=== PATIENT | female | born 1955 | race Caucasian/White ===

== ENCOUNTER 2020-03-01 11:23 | Outpatient (CLI) | payer BC, SELFPAY ==
[2020-03-01 12:20] LABS: Add Urine Microscopic? YES; Appearance Urine Cloudy (Clear); Bacteria Urine 4+ /hpf; Bilirubin Urine Negative (Negative); Blood Urine Negative (Negative); Color Urine Yellow (Yellow); Glucose Urine UA Negative (Negative); Ketones Urine Negative (Negative); Leukocyte Esterase Ur Negative LEU/UL (Negative); Mucus Urine Rare /lpf; Nitrate Urine Negative (Negative); Protein Urine Negative (Negative); RBC Urine 0-2 /hpf (0-2); Specific Grav Ur 1.014 (1.001-1.035); Squamous Epithelial Cell Urine Many /hpf (Few); Urobilinogen Urine Negative mg/dL (<2.0)
== END 2020-03-01 11:24 | disposition home or self-care (01) ==
PROVIDERS: PCP Internal Medicine; Visit Provider Nurse Practitioner
DX: R39.9 Unspecified symptoms and signs involving the genitourinary system (principal)
CPT/HCPCS: 81001

== ENCOUNTER 2020-04-16 09:50 | Outpatient (CLI) | payer BC, SELFPAY ==
--- NOTE | ~2020-04-16 | MM_ITS ---
EXAMINATION: MM screening [facility] BI w deepti HISTORY: Screening mammogram, history of left breast cancer TECHNIQUE: Craniocaudal and mediolateral oblique 3-D tomosynthesis images were obtained and synthetic 2-D images were generated. CAD analysis was submitted and interpreted. COMPARISON: 03/26/2019, 03/04/2018, 02/27/2017 BREAST PARENCHYMAL COMPOSITION: The breasts are heterogeneously dense, which may obscure small masses . FINDINGS: Stable surgical changes are noted in the breasts. There is no evidence of suspicious mass, calcification, or architectural distortion to suggest malignancy in either breast. There has been no suspicious interval change. IMPRESSION: 1. No mammographic evidence of malignancy. 2. Recommend routine screening mammography in one year. BI-RADS Category 2: Benign finding(s). Reviewed, dictated and finalized at location A. STERED DIET TECHNICIAN
== END 2020-04-16 09:51 | disposition home or self-care (01) ==
PROVIDERS: PCP Internal Medicine; Visit Provider Obstetrics & Gynecology
DX: Z12.31 Encounter for screening mammogram for malignant neoplasm of breast (principal)
CPT/HCPCS: 77063; 77067

== ENCOUNTER 2020-11-23 14:01 | Outpatient (CLI) | payer BC, MEDICARE, SELFPAY ==
--- NOTE | ~2020-11-23 | DEXA_ITS ---
Bone Density Report Name: Jackelin Giron Age: 65 Sex: Female Ethnicity: White Date of : 1955 Indication: postmenopausal; parental hip fracture; height loss; cancer; Referring Provider: Starr Perez Study: Bone densitometry was performed. Exam Date: November 23, 2020 Accession number: [id number] Bone Density: Region BMD T-score Z-score Classification AP Spine (L1, L4) 0.982 -0.5 1.4 Normal Femoral Neck (Left) 0.695 -1.4 0.2 Osteopenia Total Hip (Left) 0.874 -0.6 0.8 Normal Total Hip Bilateral Avg 0.873 -0.6 0.8 Normal Femoral Neck (Right) 0.691 -1.4 0.2 Osteopenia Total Hip (Right) 0.870 -0.6 0.7 Normal World Health Organization criteria for BMD impression classify patients as: Normal (T-score at or above -1.0), Osteopenia (T-score between -1.0 and -2.5), or Osteoporosis (T-score at or below -2.5). 10-year Fracture Risk(1): Major Osteoporotic Fracture 16% Hip Fracture 1.4% Reported Risk Factors: [place] (), Neck BMD=0.691, BMI=28.0, parental fracture (1) FRAX(R) Version 3.08. Fracture probability calculated for an untreated patient. Fracture probability may be lower if the patient has received treatment. Previous Exams: Region Exam Age BMD T-score BMD Change BMD Change Date g/cm2 vs Baseline vs Previous AP Spine(L1, L4) 11/23/2020 65 0.982 -0.5 -0.066(-6.3%)# -0.012(-1.2%)# 10/24/2018 63 0.994 -0.4 -0.054(-5.2%)# -0.054(-5.2%)# 12/23/2009 54 1.049 0.1 Total Hip(Left) 11/23/2020 65 0.874 -0.6 -0.084(-8.7%)# -0.108(-11.0%) 10/24/2018 63 0.982 0.3 0.025(2.6%)# 0.025(2.6%)# 12/23/2009 54 0.958 0.1 Total Hip(Right) 11/23/2020 65 0.870 -0.6 -0.081(-8.6%)# -0.118(-12.0%) 10/24/2018 63 0.988 0.4 0.037(3.9%)# 0.037(3.9%)# 12/23/2009 54 0.951 0.1 *Denotes significance at 95% confidence level, LSC for AP Spine = 0.022 g/cm2, LSC for Total Hip = 0.027 g/cm2 Clinical Information Provided by Patient: Parent has had a hip fracture Has used the following medications: Vitamin D, Calcium Has the following medical conditions: Cancer Patient maximum height was 66 Menopause Age: 48 No regular weight bearing exercise Onset of menses at age 11 Number of children 3 Impression: The patient has low bone mass, based on the Left Femoral Neck T-score. The patient has an estimated ten-year risk of hip fracture of 1.4% and an estimated ten-year risk of major fracture of 16%, based on
== END 2020-11-23 14:02 | disposition home or self-care (01) ==
PROVIDERS: PCP Internal Medicine; Visit Provider Obstetrics & Gynecology
DX: M85.89 Other specified disorders of bone density and structure, multiple sites (principal)
CPT/HCPCS: 77080

== ENCOUNTER 2021-04-28 17:16 | Outpatient (CLI) | payer BC, MEDICARE, SELFPAY ==
--- NOTE | ~2021-04-28 | MM_ITS ---
EXAMINATION: MM screening [facility] BI w deepti HISTORY: Screening TECHNIQUE: Craniocaudal and mediolateral oblique 3-D tomosynthesis images were obtained and synthetic 2-D images were generated. CAD analysis was submitted and interpreted. COMPARISON: Comparison to multiple prior studies sequentially, with oldest reviewed study dated 02/07. BREAST PARENCHYMAL COMPOSITION: There are scattered areas of fibroglandular density. FINDINGS: There are developing masses in the asymmetries in both breasts. There are no suspicious pedro cifications. IMPRESSION: 1. Developing bilateral masses and asymmetries. 2. Additional mammographic views and possible breast ultrasound are recommended. BI-RADS Category 0: Incomplete: Needs additional imaging evaluation. Reviewed, dictated and finalized at location A. SCHOOL COORDINATOR IMPRESSION: 1. Developing bilateral masses and asymmetries. 2. Additional mammographic views and possible breast ultrasound are recommended . BI-RADS Category 0: Incomplete: Needs additional imaging evaluation.
== END 2021-04-28 17:17 | disposition home or self-care (01) ==
LOC: ANHIMG 17:19
PROVIDERS: PCP Internal Medicine; Visit Provider Obstetrics & Gynecology
DX: Z12.31 Encounter for screening mammogram for malignant neoplasm of breast (principal); R92.8 Other abnormal and inconclusive findings on diagnostic imaging of breast
CPT/HCPCS: 77063; 77067

== ENCOUNTER 2021-06-01 11:23 | Outpatient (CLI) | payer BC, MEDICARE, SELFPAY ==
--- NOTE | ~2021-06-01 | MMUS_ITS ---
EXAMINATION: MM diagnostic [facility] BI w deepti, US breast BI complete HISTORY: Developing bilateral masses asymmetries were reported on 04/28/2021 screening mammogram TECHNIQUE: Additional 3-D tomosynthesis images of both breasts were performed and synthetic 2-D image s were generated. CAD analysis was submitted and interpreted. High resolution bilateral complete [facility] ultrasound including all 4 quadrants and subareolar areas was performed. COMPARISON: 04/28/2021 bilateral screening mammogram 04/16/2020, 03/26/2019, 03/04/2018, 02/27/2017 bilateral screening mammogram examinations FINDINGS: MAMMOGRAPHIC FINDINGS: There is chronic bilateral architectural distortion from left mastectomy and right reduction mammopla sty. Approximately 6 x 8 mm circumscribed opacity is noted anteriorly in the upper outer quadrant of left breast. Circumscribed 7 mm opacity is noted posteriorly in the outer mid to upper left breast. There is suggestion of increased asymmetric density in the lower left breast Minimal benign calcification is noted bilaterally. ULTRASOUND: No suspicious mass or shadowing of either breast is detected. Bilateral breast cysts: Right breast: 12:00 1 cm from nipple: 3.4 mm cyst 3:00 1 cm from nipple: 2,9 x 4.1 mm cyst Left breast: 4:00 6 cm from nipple: 4.6 x 7.0 mm cyst IMPRESSION: 1. Benign findings 2. Routine annual mammographic screening is recommended. BI-RADS Category 2: Benign finding(s). Reviewed, dictated and finalized at location A. STACK ENGINEER IMPRESSION: 1. Benign findings 2. Routine annual mammographic screening is recommended. BI-RADS Category 2: Benign finding(s).
== END 2021-06-01 11:24 | disposition home or self-care (01) ==
LOC: ANHIMG 11:25
PROVIDERS: PCP Internal Medicine; Visit Provider Obstetrics & Gynecology
DX: R92.8 Other abnormal and inconclusive findings on diagnostic imaging of breast (principal)
CPT/HCPCS: 76641; 77062; 77066; G0279

== ENCOUNTER 2021-10-27 01:38 | Day surgery (SDC) | payer BC, MEDICARE, SELFPAY ==
[2021-10-12 14:24] VITALS: BMI 29.2
--- NOTE | 2021-10-26 13:29 | WPDANESEPPF ---
Anes - Initial Pre Proc Eval Procedure: Operation Date: 10/27/21 08:45 Proposed Procedures p Screening Colonoscopy - Nasim Duarte MD Date/Time: 10/26/21 13:29 Surgeon: Nasim Duarte MD Pre Op Diagnosis: hx of colon polyps Patient Data Age: 66 Gender: F Height: 1.63 m Weight: 77.3 kg Allergies Allergy/AdvReac Type Severity Reaction Status Date / Time hydrocodone Allergy Intermediate Sweating Verified 10/27/21 07:22 levofloxacin Allergy Intermediate Hives Verified 10/27/21 07:22 Sulfa (Sulfonamide Allergy Mild HIVES, GI Verified 10/27/21 07:22 Antibiotics) UPSET adhesive AdvReac Intermediate Blister Verified 10/27/21 07:22 Home Medications Medication Instructions Recorded Confirmed Type calcium carbonate 500 mg calcium 500 mg PO DAILY 06/15/20 10/27/21 History (1,250 mg) tablet (Calcium 500) L.acidoph, paracasei,B. lactis 10 1 cell PO DAILY 09/21/21 10/27/21 History billion cell capsule (Digestive Advantage Advanced Probiotic) ascorbate calcium (vitamin C) 500 750 mg PO DAILY 09/21/21 10/27/21 History mg tablet cholecalciferol (vitamin D3) 250 250 mcg PO DAILY 09/21/21 10/27/21 History mcg (10,000 unit) capsule atorvastatin 10 mg tablet 10 mg PO HS 10/12/21 10/27/21 History lisinopril 30 mg tablet 30 mg PO DAILY 10/12/21 10/27/21 History Patient hx anesthesia problems: none Family hx anesthesia problems: none Results Review: All pre-operative results and documents have been reviewed as part of the pre-operative evaluation. COUNT INCLUDES THE [facility] Past Medical History Medical History (Updated 10/26/21 @ 13:30 by Piotr Vazquez MD) Allergies Bone tumor removed 1966 Breast cancer remission Diabetes mellitus Heart murmur HTN (hypertension) Hypercholesterolemia Overweight Prediabetes Squamous cell carcinoma Vitamin D deficiency Surgical History Surgical History H/O dilation and curettage 2018 H/O lumpectomy mass removed of breast 1994 History of cholecystectomy 2011 Hx of tonsillectomy Surgical defect of lip MOHS surgery of right upper lip Family History Family History Father Cerebrovascular accident Family history of malignant neoplasm of urinary bladder Hypertension Family history of malignant melanoma Sibling Family history of malignant neoplasm Family history of malignant neoplasm of thyroid Family history unknown Hypertension Family history of malignant melanoma Leukemia Mother Family history of dementia Hyperlipidemia Family history of malignant melanoma Colonic fistula Colon tumor Social History Social History Smoking status: Never smoker Alcohol intake: never Substance use: never Substance use type: does not use Living arrangements: with family Spiritual care concerns: Yes (no blood products) Anes - Eval Final PreProcedure Day of Procedure 10/26/21 13:29 Patient weight: overweight Heart: regular rate and rhythm Lungs: clear to auscultation and normal air movement Airway: Mallampati scale class II Neurological: alert and oriented Last oral intake: >/= 8 hours ASA classification: III Emergent: no Anesthetic plan: proceed Anesthesia type and monitoring: general GIVS Results Review: All pre-operative results and documents have been reviewed as part of the pre-operative evaluation. Informed Consent: The patient's anesthetic plan and its attendant risks and benefits were discussed with the patient/family/POA. Questions were solicited and answers provided to the satisfaction of the patient/family/POA.
[2021-10-27 07:23] VITALS: BP 145/58; PULSE 68; RESP 16; TEMP 36.3; O2SAT 97
[2021-10-27] MEDS: LACTATED RINGERS 1,000 ML 150 ML IV CONT (07:31)
--- NOTE | 2021-10-27 07:53 | PM.IMHP ---
H&P: HPI History of Present Illness Date/Time: 10/27/21 07:53 Chief Complaint: History of colon polyps. Narrative: This is a 66-year-old white female patient presents for screening colonoscopy. Patient has a history of colonoscopy 2017 were benign tubular adenomatous colon polyp was removed. Patient returns today for screening colonoscopy. Her weight appetite and bowel movements are normal. Patient denies abdominal pain. She has had no bleeding. Family history is noncontributory. She presents today for screening colonoscopy. Review of Systems Review of Systems: review of systems noncontributory. [facility] Past Medical History Medical History (Updated 10/27/21 @ 07:55 by Nasim Duarte MD) Allergies Bone tumor removed 1966 Breast cancer remission Diabetes mellitus Heart murmur HTN (hypertension) Hypercholesterolemia Overweight Prediabetes Squamous cell carcinoma Vitamin D deficiency Surgical History Surgical History H/O dilation and curettage 2018 H/O lumpectomy mass removed of breast 1994 History of cholecystectomy 2011 Hx of tonsillectomy Surgical defect of lip MOHS surgery of right upper lip Family History Family History Father Cerebrovascular accident Family history of malignant neoplasm of urinary bladder Hypertension Family history of malignant melanoma Sibling Family history of malignant neoplasm Family history of malignant neoplasm of thyroid Family history unknown Hypertension Family history of malignant melanoma Leukemia Mother Family history of dementia Hyperlipidemia Family history of malignant melanoma Colonic fistula Colon tumor Social History Social History Smoking status: Never smoker Alcohol intake: never Substance use: never Substance use type: does not use Living arrangements: with family Spiritual care concerns: Yes (no blood products) Meds Home Medications and Allergies Home Medications Medication Instructions Recorded Confirmed Type calcium carbonate 500 mg calcium 500 mg PO DAILY 06/15/20 10/27/21 History (1,250 mg) tablet (Calcium 500) L.acidoph, paracasei,B. lactis 10 1 cell PO DAILY 09/21/21 10/27/21 History billion cell capsule (Digestive Advantage Advanced Probiotic) ascorbate calcium (vitamin C) 500 750 mg PO DAILY 09/21/21 10/27/21 History mg tablet cholecalciferol (vitamin D3) 250 250 mcg PO DAILY 09/21/21 10/27/21 History mcg (10,000 unit) capsule atorvastatin 10 mg tablet 10 mg PO HS 10/12/21 10/27/21 History lisinopril 30 mg tablet 30 mg PO DAILY 10/12/21 10/27/21 History Allergies Allergy/AdvReac Type Severity Reaction Status Date / Time hydrocodone Allergy Intermediate Sweating Verified 10/27/21 07:22 levofloxacin Allergy Intermediate Hives Verified 10/27/21 07:22 Sulfa (Sulfonamide Allergy Mild HIVES, GI Verified 10/27/21 07:22 Antibiotics) UPSET adhesive AdvReac Intermediate Blister Verified 10/27/21 07:22 Vital Signs Vital Signs - 24 hr 10/27/21 07:23 Temperature 97.3 F L Pulse Rate 68 Respiratory Rate 16 Blood Pressure 145/58 H Pulse Oximetry 97 Oxygen Delivery Room Air Exam Narrative: Physical exam reveals patient be alert. Vital signs stable. HEENT exam is unremarkable. Patient is anicteric. Lungs are clear to auscultation and percussion. Heart is without murmur or extra sounds. Abdominal exam bowel sounds are present soft nontender with no organomegaly. Digital external rectal exam is normal. Assessment and Plan Assessment and plan (1) History of colon polyps: Code(s): Z86.010 - Personal history of colonic polyps Status: Acute Assessment and Plan: Patient has a history of benign colon polyp removed in 2017. Patient's current weight appetite and bowel movements are normal
[2021-10-27 08:44] VITALS: BP 100/42; PULSE 74; RESP 18; O2SAT 95
[2021-10-27 08:54] VITALS: BP 112/44; PULSE 64; RESP 18; O2SAT 97
[2021-10-27 09:04] VITALS: BP 145/56; PULSE 62; RESP 20; O2SAT 98
== END 2021-10-27 09:15 | disposition home or self-care (01) ==
PROVIDERS: PCP Nurse Practitioner; Visit Provider Internal Medicine Gastroenterology
PROC: 0DJD8ZZ Inspection of Lower Intestinal Tract, Via Natural or Artificial Opening Endoscopic (ICD-10-PCS; CPT 45378; principal; 2021-10-27 08:45)
DX: Z12.11 Encounter for screening for malignant neoplasm of colon (principal); K64.8 Other hemorrhoids; K57.30 Diverticulosis of large intestine without perforation or abscess without bleeding; Z86.010 Personal history of colon polyps; E11.9 Type 2 diabetes mellitus without complications; I10 Essential (primary) hypertension; E78.00 Pure hypercholesterolemia, unspecified; E55.9 Vitamin D deficiency, unspecified; Z85.3 Personal history of malignant neoplasm of breast
CPT/HCPCS: 45378; J2704; J7120

== ENCOUNTER → 2021-11-01 16:18 | Outpatient (REF) | payer BC, MEDICARE, SELFPAY | LOC: ANHLAB 16:18 | PROVIDERS: PCP Nurse Practitioner; Visit Provider Nurse Practitioner | DX: C44.311 Basal cell carcinoma of skin of nose (principal); C44.719 Basal cell carcinoma of skin of left lower limb, including hip | CPT/HCPCS: 88305 ==

== ENCOUNTER 2022-01-16 13:00 | Outpatient (NON) | payer BC, MEDICARE, SELFPAY | END 2022-01-23 14:53 | disposition home or self-care (01) | LOC: ANHLAB 01-24 11:17 | PROVIDERS: PCP Nurse Practitioner; Visit Provider Surgery Plastic and Reconstructive Surgery | DX: C44.311 Basal cell carcinoma of skin of nose (principal); C44.719 Basal cell carcinoma of skin of left lower limb, including hip | CPT/HCPCS: 88305; 88331 ==